=== PATIENT | female | born 2005 | race African-American/Black ===

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

== ENCOUNTER 2023-08-01 10:01 | Emergency (ER) | payer OTHER ==
[2023-08-01 10:17] VITALS: BP 109/74; PULSE 78; RESP 16; TEMP 98.3; BMI 25.7
[2023-08-01] MEDS ORDERED: BACITRACIN ZINC 15 GM TUBE TOPICAL OINTMENT TP ONE (11:31)
[2023-08-01] MEDS ORDERED: BACITRACIN ZINC 15 GM TUBE TOPICAL OINTMENT ONE (11:46)
== END 2023-08-01 11:48 | disposition home or self-care (01) ==
LOC: JERFT 10:01
DX: M79.644 Pain in right finger(s) (principal); R22.31 Localized swelling, mass and lump, right upper limb; L03.011 Cellulitis of right finger
CPT/HCPCS: 99283-25